=== PATIENT | male | born 1960 | race African-American/Black ===

== ENCOUNTER 2016-12-19 20:46 | Emergency (ER) | payer OTHER ==
[~2016-12-19 20:46] MED LIST: Iopamidol 370 76% 100 ML VIAL ONE
[2016-12-19 21:14] LABS: #Basophils 0.1 thou/uL (0.0-0.2); #Lymphocytes 1.5 thou/uL (1.20-3.40); #Monocytes 0.4 thou/uL (0.11-0.59); #Neutrophils 5.4 thou/uL (1.40-6.50); %Basophils 1.2 % (0.0-1.0); %Eosinophils 0.2 % (0.0-10.0); %Lymphocytes 20.4 % (21.0-51.0); %Neutrophils 72.2 % (42.0-75.0); Hemoglobin 15.2 g/dL (14.0-18.0); Mean Corpuscular HGB CONC 31.6 g/dL (32.0-36.0); Mean Corpuscular Hemoglobin 30.8 pg (27.0-31.0); Mean Corpuscular Volume 97.7 fl (80.0-94.0); Mean Platelet Volume 7.7 fL (7.4-10.4); Platelet Count 243 thou/uL (130-400); RBC Distribution Width 12.8 % (11.5-14.5); Red Blood Cell (RBC) Count 4.94 mill/uL (4.70-6.10); White Blood Cell (WBC) Count 7.4 thou/uL (4.8-10.8)
[2016-12-19] MEDS ORDERED: Nitroglycerin 0.4 MG TAB (25 Tab Bottle) ONE (21:17)
[2016-12-19] MEDS ORDERED: Ondansetron HCl/PF 4 MG/2 ML Vial ONE (21:26)
[2016-12-19 21:29] LABS: CKMB 1.4 ng/mL (0-6.6); Troponin I Less than 0.010 ng/mL (< 0.028)
[2016-12-19 21:30] LABS: ALT (SGPT) 34 U/L (0-55); AST (SGOT) 30 U/L (5-34); Alkaline Phosphatase 79 U/L (40-150); Anion Gap 14 mmol/L (10-20); BUN (Urea Nitrogen) 9 mg/dL (8.4-25.7); Bilirubin, Total 0.6 mg/dL (0.2-1.2); Calc. Creatinine Clearance 0 mL/min (70-130); Calcium 9.3 mg/dL (7.8-10.44); Carbon Dioxide 21 mmol/L (22-29); Chloride 106 mmol/L (98-107); Estimated GFR-MDRD 68; Globulin 3.3 g/dL (2.4-3.5); Glucose 133 mg/dL (70-105); Lipase 26 U/L (8-78); Protein, Total 7.3 g/dL (6.0-8.3); Sodium 137 mmol/L (136-145)
--- NOTE | 2016-12-19 22:14 | CT ---
CT ABDOMEN AND PELVIS WITH CONTRAST: Date: 12-19-16 Technique: Spiral CT of the abdomen and pelvis was done after giving IV contrast. Oral contrast was withheld by requested. Axial slices were acquired and then coronal reconstructions. FINDINGS: The lung bases are clear except for some dependent atelectasis. No pleural effusions are seen. 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 The portal vein has blood flow within it, as does the splenic v ein. The liver, pancreas, adrenal glands, kidneys and gallbladder were unremarkable in appearance. The ao rta transiently dilated distally just above the bifurcation, but the AP diameter is only 2.2 cm whic h is of no concern. No free air or free fluid was seen in the abdomen. There is no distention of bowel to suggest obstru ction. A few loops of small bowel are fluid filled but not greatly dilated. CT of the pelvis shows no inflammatory changes, masses, or free fluid. Degenerative changes are steve te prominent in the lower lumbar spine with central canal stenosis suggested at especially L4-5. 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 Findings discussed with Dr. Mendieta at 2203 on 12-19-16. POS: HOME
== END 2016-12-19 23:32 | disposition short-term general hospital (02) ==
LOC: BURERS 20:46
DX: D73.5 Infarction of spleen (principal); I25.2 Old myocardial infarction; I10 Essential (primary) hypertension; F32.9 Major depressive disorder, single episode, unspecified; F17.200 Nicotine dependence, unspecified, uncomplicated
CPT/HCPCS: 74177; 80053; 82553; 83690; 84484; 85025; 93005; 96374; 96375; J2270; J2405